=== PATIENT | male | born 1955 | race Asian ===

== ENCOUNTER 2017-09-17 11:58 | Inpatient (IN) | payer SELFPAY ==
[~2017-09-17] VITALS: Ht 172.7 cm; Wt 89.8 kg
[~2017-09-17 11:58] MED LIST: COR6 PO; DAPA1TAB3 PO; ENAL2.5T PO; FURO80TA87 PO; LIP40 PO; POTA20TA82 PO; SITA100T11 PO; SPIR50TA26 PO
[2017-09-17] MEDS ORDERED: IPRATROPIUM BROMIDE (0.02%) 0.5MG/2.5ML NEB HHN STA (14:06)
[2017-09-17] MEDS ORDERED: FUROSEMIDE 40MG/4ML VIAL IV STA (14:06)
[2017-09-17] MEDS ORDERED: ALBUTEROL (0.083%) 2.5MG/3ML NEB HHN STA (14:06)
[2017-09-17 14:56] LABS: CARBON DIOXIDE 29 mEq/L (21-32); CHLORIDE 103 mEq/L (98-107)
[2017-09-17] MEDS ORDERED: ACETAMINOPHEN 325MG TABLET PO PRN (15:15)
[2017-09-17] MEDS ORDERED: CLONIDINE 0.1MG TABLET PO PRN (15:15)
[2017-09-17] MEDS ORDERED: ONDANSETRON HCL 4MG/2ML VIAL IV PRN (15:15)
[2017-09-17] MEDS ORDERED: DEXTROSE 50% WATER 50ML SYRINGE IV PRN (15:15)
[2017-09-17 15:39] LABS: HEMATOCRIT. 39.5 % (42.0-52.0); HEMOGLOBIN. 13.1 g/dL (14.0-18.0); MEAN CORPUSCULAR HEMOGLOBIN 28.4 pg (28.0-32.0); MEAN CORPUSCULAR VOLUME 85.6 fL (80.0-94.0); MEAN PLATELET VOLUME 9.2 fl (7.4-10.4); PLATELET 203 x1000/uL (130-400); RED BLOOD CELL COUNT 4.61 mill/uL (4.7-6.1); RED CELL DISTRIBUTION WIDTH 16.2 % (11.6-14.6)
[2017-09-17 16:07] LABS: AMMONIA < 25 uMol/L (<32)
[2017-09-17 16:09] LABS: BG CARBOXYHEMOGLOBIN 1.1 % (0.5-1.5); BG DEOXYHEMOGLOBIN 3.1 % (0.0-5.0); BG FRACTION INSPIRED OXYGEN 21; BG METHEMOGLOBIN 0.2 % (0.0-1.5); BG OXYGEN SATURATION 96.9 % (92.0-98.5); BG OXYHEMOGLOBIN 95.6 % (94.0-97.0); BG PCO2 35.9 mmHg (35.0-45.0); BG PH 7.406 (7.350-7.450); BG PO2 86.6 mmHg (75.0-100.0); BG SAMPLE SITE RIGHT RADIAL; BG TOTAL HEMOGLOBIN 14.8 g/dL (12.0-18.0); BG VENT MODE ROOM AIR
[2017-09-17 16:12] LABS: D-DIMER 2.34 mg/L FEU (<0.50); INR 1.2; PROTHROMBIN TIME 12.5 sec (9.4-11.6)
[2017-09-17 16:28] LABS: HEPATITIS B SURFACE ANTIGEN NEGATIVE
[2017-09-17 16:42] LABS: ATYPICAL LYMPHOCYTES 2; PLATELET ESTIMATE NORMAL
[2017-09-17 16:57] LABS: HEPATITIS B CORE AB IGM NEGATIVE
[2017-09-17 16:58] LABS: HEPATITIS A AB IGM NEGATIVE (NEGATIVE)
[2017-09-17] MEDS ORDERED: CARVEDILOL 6.25 MG TABLET PO SCH (17:00)
[2017-09-17 20:00] VITALS: BP 119/86
[2017-09-17 20:25] VITALS: BP 119/86
[2017-09-17] MEDS ORDERED: PANTOPRAZOLE SODIUM 40 MG/VIAL IV NR (20:33)
[2017-09-17] MEDS ORDERED: FUROSEMIDE 40MG TABLET PO SCH (20:34)
[2017-09-17] MEDS: INSULIN LISPRO 100 UNITS/ML SUBCUT SCH (21:00)
[2017-09-17] MEDS: BLOOD SUGAR DIAGNOSTIC STRIP TEST SCH (21:21)
[2017-09-17] MEDS: CARVEDILOL 6.25 MG TABLET PO SCH (21:30)
[2017-09-17] MEDS: ATORVASTATIN CALCIUM 40MG TABLET PO SCH (21:30)
[2017-09-17 22:00] VITALS: BP 94/66
[2017-09-17] MEDS ORDERED: SACU1TAB7 PO (23:02)
[2017-09-17] MEDS ORDERED: ASPI-1079 PO (23:02)
[2017-09-17] MEDS ORDERED: CLOP75TA16 PO (23:02)
[2017-09-18] VITALS (12 sets, daily range): BP systolic 90–119; BP diastolic 62–86
[2017-09-18 00:51] LABS: CLARITY URINE CLEAR (CLEAR); COLOR URINE DARK YELLOW (YELLOW); KETONES URINE NEGATIVE (NEGATIVE); LEUKOCYTE ESTERASE URINE NEGATIVE (NEGATIVE); NITRITE URINE NEGATIVE (NEGATIVE); OCCULT BLOOD URINE NEGATIVE (NEGATIVE); PROTEIN URINE NEGATIVE (NEGATIVE); SPECIFIC GRAVITY URINE 1.021 (1.005-1.030)
[2017-09-18] MEDS: INSULIN LISPRO 100 UNITS/ML SUBCUT SCH ×4 (07:20→21:00)
[2017-09-18 07:29] LABS: MEAN CORPUSCULAR HEMOGLOBIN 27.5 pg (28.0-32.0); MEAN CORPUSCULAR VOLUME 85.2 fL (80.0-94.0); MEAN PLATELET VOLUME 8.9 fl (7.4-10.4); PLATELET 190 x1000/uL (130-400); RED BLOOD CELL COUNT 3.98 mill/uL (4.7-6.1)
[2017-09-18] MEDS: BLOOD SUGAR DIAGNOSTIC STRIP TEST SCH ×4 (07:30→21:42)
[2017-09-18 08:43] LABS: AMYLASE 67 IU/L (25-115); CARBON DIOXIDE 27 mEq/L (21-32); CHLORIDE 105 mEq/L (98-107); TROPONIN I < 0.02 ng/mL (0.00-0.04)
[2017-09-18] MEDS ORDERED: DIATR MEGLU/DIATRIZOATE SOLN 30ML PO SCH (08:45)
[2017-09-18] MEDS ORDERED: CLOPIDOGREL 75MG TABLET PO SCH (09:00)
[2017-09-18] MEDS ORDERED: FUROSEMIDE 80MG TABLET PO SCH (09:00)
[2017-09-18] MEDS ORDERED: FUROSEMIDE 40MG/4ML VIAL IVP SCH (09:00)
[2017-09-18] MEDS: CARVEDILOL 6.25 MG TABLET PO SCH ×2 (09:00→21:33)
[2017-09-18] MEDS: PANTOPRAZOLE SODIUM 40 MG/VIAL IV SCH (09:19)
[2017-09-18] MEDS: SPIRONOLACTONE 25MG TABLET PO SCH (09:25)
[2017-09-18] MEDS: FUROSEMIDE 40MG/4ML VIAL IVP SCH (09:25)
[2017-09-18 12:02] LABS: TOTAL IRON BINDING CAPACITY 259 ug/dL (250-450)
[2017-09-18 12:34] LABS: FOLIC ACID (FOLATE) SERUM 7.4 ng/mL (>5.38)
[2017-09-18 15:00] LABS: PLATELET ESTIMATE NORMAL
[2017-09-18] MEDS: ATORVASTATIN CALCIUM 40MG TABLET PO SCH ×2 (21:30→21:31)
[2017-09-19] VITALS (13 sets, daily range): BP systolic 94–114; BP diastolic 65–81
[2017-09-19] MEDS: INSULIN LISPRO 100 UNITS/ML SUBCUT SCH ×4 (06:13→21:00)
[2017-09-19] MEDS: BLOOD SUGAR DIAGNOSTIC STRIP TEST SCH ×4 (06:16→21:03)
[2017-09-19] MEDS: PANTOPRAZOLE SODIUM 40 MG/VIAL IV SCH (08:16)
[2017-09-19] MEDS: FUROSEMIDE 40MG/4ML VIAL IVP SCH ×2 (08:16→21:01)
[2017-09-19] MEDS: CARVEDILOL 6.25 MG TABLET PO SCH ×2 (08:25→21:03)
[2017-09-19] MEDS: SPIRONOLACTONE 25MG TABLET PO SCH (08:25)
[2017-09-19 11:32] LABS: INR 1.2; PARTIAL THROMBOPLASTIN TIME 28.3 sec (23.4-31.0); PROTHROMBIN TIME 12.2 sec (9.4-11.6)
[2017-09-19] MEDS ORDERED: FUROSEMIDE 40MG/4ML VIAL IVP NR (11:45)
[2017-09-19] MEDS ORDERED: METOLAZONE 2.5MG TABLET PO NR (11:45)
[2017-09-19 12:31] LABS: BASOPHILS % 0.7 % (0.0-2.0); EOSINOPHILS % 22.7 % (0.0-5.0); HEMOGLOBIN. 11.8 g/dL (14.0-18.0); LYMPHOCYTES % 7.9 % (20.0-50.0); MEAN CORPUSCULAR HEMOGLOBIN 27.4 pg (28.0-32.0); MEAN CORPUSCULAR VOLUME 86.1 fL (80.0-94.0); MEAN PLATELET VOLUME 9.3 fl (7.4-10.4); NEUTROPHILS % 61.7 % (40.0-76.0); PLATELET 208 x1000/uL (130-400); RED CELL DISTRIBUTION WIDTH 16.6 % (11.6-14.6)
[2017-09-19 12:40] LABS: CARBON DIOXIDE 27 mEq/L (21-32); CHLORIDE 104 mEq/L (98-107)
[2017-09-19] MEDS: ENOXAPARIN 100MG/ML SYR SUBCUT SCH ×2 (12:45→23:40)
[2017-09-19] MEDS: ATORVASTATIN CALCIUM 40MG TABLET PO SCH (21:02)
[2017-09-20] VITALS (12 sets, daily range): BP systolic 93–121; BP diastolic 64–85
[2017-09-20] MEDS: BLOOD SUGAR DIAGNOSTIC STRIP TEST SCH ×4 (06:28→21:10)
[2017-09-20] MEDS: INSULIN LISPRO 100 UNITS/ML SUBCUT SCH ×4 (06:28→21:00)
[2017-09-20 07:19] LABS: BASOPHILS % 0.5 % (0.0-2.0); EOSINOPHILS % 23.4 % (0.0-5.0); HEMATOCRIT. 33.4 % (42.0-52.0); HEMOGLOBIN. 11.2 g/dL (14.0-18.0); MEAN CORPUSCULAR HEMOGLOBIN 28.5 pg (28.0-32.0); MEAN CORPUSCULAR VOLUME 84.8 fL (80.0-94.0); MEAN PLATELET VOLUME 9.2 fl (7.4-10.4); MONOCYTES % 7.9 % (2.0-8.0); NEUTROPHILS % 59.2 % (40.0-76.0); PLATELET 181 x1000/uL (130-400); RED BLOOD CELL COUNT 3.94 mill/uL (4.7-6.1); RED CELL DISTRIBUTION WIDTH 16.2 % (11.6-14.6)
[2017-09-20] MEDS: FUROSEMIDE 40MG/4ML VIAL IVP SCH ×2 (08:33→16:50)
[2017-09-20] MEDS: SPIRONOLACTONE 25MG TABLET PO SCH (08:34)
[2017-09-20] MEDS: CARVEDILOL 6.25 MG TABLET PO SCH ×2 (08:34→21:10)
[2017-09-20] MEDS: FAMOTIDINE 20MG TABLET PO SCH ×2 (08:34→21:10)
[2017-09-20 08:42] LABS: CARBON DIOXIDE 24 mEq/L (21-32); CHLORIDE 103 mEq/L (98-107)
[2017-09-20] MEDS ORDERED: ENOXAPARIN 100MG/ML SYR SUBCUT SCH (09:00)
[2017-09-20 09:07] LABS: ALPHA FETOPROTEIN TUMOR MARKER 2.5 ng/mL (0.0-8.3); IMMUNOGLOBULIN G 1886 mg/dL (700-1600)
[2017-09-20 17:12] LABS: ANTI-NUCLEAR ANTIBODIES DIRECT Negative (Negative)
[2017-09-20] MEDS: ATORVASTATIN CALCIUM 40MG TABLET PO SCH (21:10)
[2017-09-21] VITALS (10 sets, daily range): BP systolic 95–135; BP diastolic 64–77
[2017-09-21] MEDS: BLOOD SUGAR DIAGNOSTIC STRIP TEST SCH ×3 (06:31→16:29)
[2017-09-21] MEDS: INSULIN LISPRO 100 UNITS/ML SUBCUT SCH ×3 (06:32→16:29)
[2017-09-21 06:51] LABS: BASOPHILS % 0.7 % (0.0-2.0); EOSINOPHILS % 24.2 % (0.0-5.0); HEMATOCRIT. 33.8 % (42.0-52.0); HEMOGLOBIN. 11.4 g/dL (14.0-18.0); LYMPHOCYTES % 10.2 % (20.0-50.0); MEAN CORPUSCULAR HEMOGLOBIN 28.4 pg (28.0-32.0); MEAN CORPUSCULAR VOLUME 84.5 fL (80.0-94.0); MEAN PLATELET VOLUME 9.2 fl (7.4-10.4); MONOCYTES % 8.4 % (2.0-8.0); NEUTROPHILS % 56.5 % (40.0-76.0); PLATELET 177 x1000/uL (130-400); RED CELL DISTRIBUTION WIDTH 16.3 % (11.6-14.6)
[2017-09-21 06:54] LABS: INR 1.2; PROTHROMBIN TIME 12.1 sec (9.4-11.6)
[2017-09-21 07:27] LABS: CHLORIDE 102 mEq/L (98-107)
[2017-09-21 07:31] LABS: CARBON DIOXIDE 22 mEq/L (21-32)
[2017-09-21] MEDS: CARVEDILOL 6.25 MG TABLET PO SCH (08:23)
[2017-09-21] MEDS: FAMOTIDINE 20MG TABLET PO SCH (08:23)
[2017-09-21] MEDS: SPIRONOLACTONE 25MG TABLET PO SCH (08:24)
[2017-09-21] MEDS: FUROSEMIDE 40MG/4ML VIAL IVP SCH (08:24)
[2017-09-21] MEDS ORDERED: FURO40TA5 PO (11:51)
[2017-09-21] MEDS ORDERED: APIX5TAB PO (11:51)
[2017-09-21] MEDS ORDERED: SODIUM BICARBONATE 4% (2.4MEQ) 5ML VIAL IV ONE (13:11)
[2017-09-21] MEDS ORDERED: LIDOCAINE HCL 1% 20ML VIAL (Pyxis) INJ ONE (13:11)
[2017-09-21] MEDS ORDERED: FUROSEMIDE 40MG TABLET PO SCH (17:15)
[2017-09-23 08:14] LABS: ACTIN (SMOOTH MUSCLE) ANTIBODY 12 Units (0-19)
== END 2017-09-21 17:55 | disposition home or self-care (01) | DRG 194 ==
LOC: ER 12:55 → 3WST 15:17 → EDBEDREQ 15:21 → ENRESERV 17:06
PROVIDERS: ADMIT Internal Medicine Critical Care Medicine; ATTEND Internal Medicine Critical Care Medicine
PROC: 0W9G3ZZ Drainage of Peritoneal Cavity, Percutaneous Approach (ICD-10-PCS; principal; 2017-09-21)
DX: I11.0 Hypertensive heart disease with heart failure (principal); J96.00 Acute respiratory failure, unspecified whether with hypoxia or hypercapnia; G93.40 Encephalopathy, unspecified; R18.8 Other ascites; E87.5 Hyperkalemia; I08.1 Rheumatic disorders of both mitral and tricuspid valves; E11.9 Type 2 diabetes mellitus without complications; I50.43 Acute on chronic combined systolic (congestive) and diastolic (congestive) heart failure; E78.5 Hyperlipidemia, unspecified; I25.10 Atherosclerotic heart disease of native coronary artery without angina pectoris; I25.5 Ischemic cardiomyopathy; I50.82 Biventricular heart failure; R29.6 Repeated falls; R62.7 Adult failure to thrive; E80.6 Other disorders of bilirubin metabolism; S80.822A Blister (nonthermal), left lower leg, initial encounter; S80.821A Blister (nonthermal), right lower leg, initial encounter; X58.XXXA Exposure to other specified factors, initial encounter; K76.9 Liver disease, unspecified; K29.70 Gastritis, unspecified, without bleeding; I25.2 Old myocardial infarction; Z95.5 Presence of coronary angioplasty implant and graft; Z95.810 Presence of automatic (implantable) cardiac defibrillator; Z88.0 Allergy status to penicillin; Y93.89 Activity, other specified; Y92.89 Other specified places as the place of occurrence of the external cause; Y99.8 Other external cause status; Z79.899 Other long term (current) drug therapy
CPT/HCPCS: 36415; 36600; 49083; 71045; 74176; 76700; 76705; 78582; 80048; 80053; 80076; 81003; 82040; 82105; 82140; 82150; 82248; 82375; 82607; 82728; 82746; 82784; 82805; 82962; 82977; 83540; 83550; 83605; 83615; 83690; 83735; 83880; 84157; 84443; 84484; 85025; 85379; 85384; 85610; 85730; 86038; 86705; 86709; 86803; 87040; 87070; 87086; 87205; 87340; 88108; 89050; 93005; 93306; 93970; 99285; A9558; C9113; J1650; J1815; J1940; J3490; Q9963

== ENCOUNTER 2018-04-01 16:03 | Inpatient (IN) | payer MEDICAID ==
[~2018-04-01] VITALS: Ht 172.7 cm; Wt 83.0 kg
[~2018-04-01 16:03] MED LIST changes: +APIX5TAB PO; +ASPI-1079 PO; +FURO40TA5 PO; -FURO80TA87 PO; -POTA20TA82 PO; +SACU1TAB7 PO; -SPIR50TA26 PO; +SPIR50TA5 PO
[2018-04-01 17:12] LABS: BASOPHILS % 0.8 % (0.0-2.0); EOSINOPHILS % 2.1 % (0.0-5.0); HEMATOCRIT. 41.6 % (42.0-52.0); HEMOGLOBIN. 13.6 g/dL (14.0-18.0); LYMPHOCYTES % 7.2 % (20.0-50.0); MEAN CORPUSCULAR HEMOGLOBIN 26.2 pg (28.0-32.0); MEAN CORPUSCULAR VOLUME 80.3 fL (80.0-94.0); MEAN PLATELET VOLUME 8.5 fl (7.4-10.4); MONOCYTES % 6.3 % (2.0-8.0); NEUTROPHILS % 83.6 % (40.0-76.0); PLATELET 247 x1000/uL (130-400); RED BLOOD CELL COUNT 5.19 mill/uL (4.7-6.1); RED CELL DISTRIBUTION WIDTH 19.3 % (11.6-14.6)
[2018-04-01 17:16] LABS: INR 1.3; PROTHROMBIN TIME 13.4 sec (9.4-11.6)
[2018-04-01 17:17] LABS: CHLORIDE 97 mEq/L (98-107)
[2018-04-01] MEDS ORDERED: FUROSEMIDE 40MG/4ML VIAL IVP ONE (18:45)
[2018-04-01] MEDS ORDERED: IPRATROPIUM/ALBUTEROL 0.5-3(2.5)MG/3ML NEB INH PRN (19:15)
[2018-04-01] MEDS ORDERED: NITROGLYCERIN 0.4MG TABLET SL SL PRN (19:15)
[2018-04-01] MEDS ORDERED: DIPHENHYDRAMINE 50MG/ML VIAL IV PRN (19:15)
[2018-04-01] MEDS ORDERED: ACETAMINOPHEN 325MG TABLET PO PRN (19:15)
[2018-04-01] MEDS ORDERED: GUAIFENESIN 200MG/10ML SUGAR FREE UDC PO PRN (19:15)
[2018-04-01] MEDS ORDERED: CLONIDINE 0.1MG TABLET PO PRN (19:15)
[2018-04-01] MEDS ORDERED: DEXTROSE 50% WATER 50ML SYRINGE IV PRN (19:15)
[2018-04-01] MEDS ORDERED: MAGNESIUM/ALUMINUM HYDROXIDE/SIMETHICONE 30ML UDC PO PRN (19:15)
[2018-04-01] MEDS ORDERED: DOCUSATE SODIUM 100MG CAPSULE PO PRN (19:15)
[2018-04-01] MEDS ORDERED: ONDANSETRON 4MG ODT PO PRN (19:15)
[2018-04-01] MEDS ORDERED: ZOLPIDEM TARTRATE 5MG TABLET PO PRN (21:00)
[2018-04-01] MEDS ORDERED: NA PHOS,M-B/NA PHOS,DI-BA ENEMA 118ML PR PRN (21:00)
[2018-04-01 23:46] VITALS: BP 99/74
[2018-04-02] VITALS: BP_SYST 102; BP_SYST 99; BP_DIAS 74; BP_DIAS 75
[2018-04-02] MEDS: TRAMADOL 50MG TABLET PO PRN ×2 (00:50→09:10)
[2018-04-02 01:13] LABS: CREATINE KINASE 61 IU/L (39-308); CREATINE KINASE MB FRACTION 1.6 ng/mL (0.5-3.6)
[2018-04-02] MEDS ORDERED: RIVA10TA PO (02:27)
[2018-04-02] MEDS ORDERED: OMEG-119 PO (02:30)
[2018-04-02 04:00] VITALS: BP 102/79
[2018-04-02] MEDS: BLOOD SUGAR DIAGNOSTIC STRIP TEST SCH ×4 (07:20→20:51)
[2018-04-02] MEDS: INSULIN LISPRO 100 UNITS/ML SUBCUT SCH ×4 (07:20→20:53)
[2018-04-02 08:00] VITALS: BP 98/74
[2018-04-02] MEDS ORDERED: METOLAZONE 10MG TABLET PO NR (08:00)
[2018-04-02 08:55] LABS: CREATINE KINASE 59 IU/L (39-308)
[2018-04-02 08:56] LABS: CREATINE KINASE MB FRACTION 1.7 ng/mL (0.5-3.6)
[2018-04-02] MEDS: ASPIRIN 325MG EC TABLET PO SCH (08:58)
[2018-04-02] MEDS: FAMOTIDINE 20MG TABLET PO SCH (08:58)
[2018-04-02] MEDS: APIXABAN 2.5 MG TABLET PO SCH ×2 (08:59→17:53)
[2018-04-02] MEDS ORDERED: FUROSEMIDE 40MG/4ML VIAL IVP SCH (09:00)
[2018-04-02] MEDS: SPIRONOLACTONE 25MG TABLET PO SCH ×2 (09:00→21:00)
[2018-04-02 11:38] LABS: HEMOGLOBIN. 12.9 g/dL (14.0-18.0); MEAN CORPUSCULAR HEMOGLOBIN 26.1 pg (28.0-32.0); MEAN CORPUSCULAR VOLUME 80.7 fL (80.0-94.0); MEAN PLATELET VOLUME 8.7 fl (7.4-10.4); PLATELET 207 x1000/uL (130-400); RED BLOOD CELL COUNT 4.96 mill/uL (4.7-6.1); RED CELL DISTRIBUTION WIDTH 19.5 % (11.6-14.6)
[2018-04-02 11:41] LABS: CHLORIDE 97 mEq/L (98-107)
[2018-04-02 12:00] VITALS: BP 107/75
[2018-04-02] MEDS: LORAZEPAM 0.5MG TABLET PO PRN (13:26)
[2018-04-02 13:47] LABS: PLATELET ESTIMATE NORMAL
[2018-04-02 16:00] VITALS: BP 105/71
[2018-04-02 20:00] VITALS: BP 90/65
[2018-04-02] MEDS: FUROSEMIDE 40MG/4ML VIAL IVP SCH (20:46)
[2018-04-02] MEDS ORDERED: ATORVASTATIN CALCIUM 40MG TABLET PO SCH (21:00)
[2018-04-03 04:00] VITALS: BP 121/65
[2018-04-03] MEDS: BLOOD SUGAR DIAGNOSTIC STRIP TEST SCH ×2 (06:43→12:38)
[2018-04-03] MEDS: INSULIN LISPRO 100 UNITS/ML SUBCUT SCH ×2 (07:10→12:38)
[2018-04-03 08:00] VITALS: BP 94/70
[2018-04-03] MEDS ORDERED: METOLAZONE 2.5MG TABLET PO SCH (09:00)
[2018-04-03] MEDS: ASPIRIN 325MG EC TABLET PO SCH (09:00)
[2018-04-03] MEDS: SPIRONOLACTONE 25MG TABLET PO SCH (09:08)
[2018-04-03] MEDS: FUROSEMIDE 40MG/4ML VIAL IVP SCH (09:08)
[2018-04-03] MEDS: APIXABAN 2.5 MG TABLET PO SCH (09:08)
[2018-04-03] MEDS: FAMOTIDINE 20MG TABLET PO SCH (09:08)
[2018-04-03] MEDS: TRAMADOL 50MG TABLET PO PRN (09:09)
[2018-04-03 09:55] LABS: BASOPHILS % 0.6 % (0.0-2.0); EOSINOPHILS % 3.2 % (0.0-5.0); HEMATOCRIT. 40.6 % (42.0-52.0); HEMOGLOBIN. 13.1 g/dL (14.0-18.0); LYMPHOCYTES % 9.5 % (20.0-50.0); MEAN CORPUSCULAR HEMOGLOBIN 26.2 pg (28.0-32.0); MEAN PLATELET VOLUME 8.3 fl (7.4-10.4); NEUTROPHILS % 74.7 % (40.0-76.0); PLATELET 204 x1000/uL (130-400); RED BLOOD CELL COUNT 5.01 mill/uL (4.7-6.1); RED CELL DISTRIBUTION WIDTH 19.4 % (11.6-14.6)
[2018-04-03 10:26] LABS: CHLORIDE 96 mEq/L (98-107)
[2018-04-03 10:41] LABS: LDL CHOLESTEROL 78 mg/dL (5-100)
[2018-04-03 10:42] LABS: CREATINE KINASE 56 IU/L (39-308); CREATINE KINASE MB FRACTION 1.7 ng/mL (0.5-3.6); HDL CHOLESTEROL 23 mg/dL (40-59)
[2018-04-03 12:00] VITALS: BP 97/73
[2018-04-03] MEDS: LORAZEPAM 0.5MG TABLET PO PRN (12:12)
== END 2018-04-03 15:35 | disposition home or self-care (01) | DRG 194 ==
LOC: ER 16:58 → 7WST 18:35 → ENRESERV 21:04
PROVIDERS: ADMIT Internal Medicine; ATTEND Internal Medicine
DX: I13.0 Hypertensive heart and chronic kidney disease with heart failure and stage 1 through stage 4 chronic kidney disease, or unspecified chronic kidney disease (principal); N17.9 Acute kidney failure, unspecified; R18.8 Other ascites; E44.1 Mild protein-calorie malnutrition; E11.22 Type 2 diabetes mellitus with diabetic chronic kidney disease; E87.1 Hypo-osmolality and hyponatremia; I50.23 Acute on chronic systolic (congestive) heart failure; E78.00 Pure hypercholesterolemia, unspecified; I25.10 Atherosclerotic heart disease of native coronary artery without angina pectoris; I25.5 Ischemic cardiomyopathy; N18.9 Chronic kidney disease, unspecified; K76.1 Chronic passive congestion of liver; K74.60 Unspecified cirrhosis of liver; I08.1 Rheumatic disorders of both mitral and tricuspid valves; K57.30 Diverticulosis of large intestine without perforation or abscess without bleeding; I25.2 Old myocardial infarction; Z79.4 Long term (current) use of insulin; Z79.82 Long term (current) use of aspirin; Z95.810 Presence of automatic (implantable) cardiac defibrillator; Z88.0 Allergy status to penicillin; Z79.899 Other long term (current) drug therapy; Z95.5 Presence of coronary angioplasty implant and graft; Z68.27 Body mass index [BMI] 27.0-27.9, adult
CPT/HCPCS: 36415; 71045; 74176; 80053; 80061; 82550; 82553; 82962; 83036; 83690; 83735; 83880; 84484; 85025; 85610; 93005; 93306; 93970; 96374; 99285; J1940

== ENCOUNTER 2018-06-02 16:10 | Inpatient (IN) | payer MEDICAID ==
[~2018-06-02] VITALS: Ht 170.2 cm; Wt 78.1 kg
[2018-06-02] VITALS (21 sets, daily range): BP systolic 91–127; BP diastolic 47–75
[~2018-06-02 16:10] MED LIST changes: -APIX5TAB PO; -ASPI-1079 PO; -COR6 PO; -DAPA1TAB3 PO; -ENAL2.5T PO; +FURO-151 MT; -FURO40TA5 PO; -SACU1TAB7 PO; -SITA100T11 PO; -SPIR50TA5 PO
[2018-06-02 17:08] LABS: BG CARBOXYHEMOGLOBIN 1.3 % (0.5-1.5); BG DEOXYHEMOGLOBIN 1.8 % (0.0-5.0); BG FRACTION INSPIRED OXYGEN 28; BG METHEMOGLOBIN 0.4 % (0.0-1.5); BG OXYGEN SATURATION 98.2 % (92.0-98.5); BG OXYHEMOGLOBIN 96.5 % (94.0-97.0); BG PCO2 23.9 mmHg (35.0-45.0); BG PO2 117.1 mmHg (75.0-100.0); BG SAMPLE SITE RIGHT BRACHIAL; BG VENT MODE NASAL CANNULA
[2018-06-02] MEDS ORDERED: IPRATROPIUM/ALBUTEROL 0.5-3(2.5)MG/3ML NEB INH PRN (17:45)
[2018-06-02] MEDS ORDERED: CLONIDINE 0.1MG TABLET PO PRN (17:45)
[2018-06-02] MEDS ORDERED: ENOXAPARIN 40MG/0.4ML SYR SUBCUT SCH (17:45)
[2018-06-02] MEDS ORDERED: ACETAMINOPHEN 325MG TABLET PO PRN (17:45)
[2018-06-02] MEDS ORDERED: DOCUSATE SODIUM 100MG CAPSULE PO PRN (17:45)
[2018-06-02] MEDS ORDERED: MORPHINE SULFATE 4 MG/ML CPJ (NOT FOR IM USE) IV PRN (17:45)
[2018-06-02] MEDS ORDERED: TRAMADOL 50MG TABLET PO PRN (17:45)
[2018-06-02] MEDS ORDERED: DOBUTAMINE 250MG PREMIX 250 ML IV SCH (17:45)
[2018-06-02] MEDS ORDERED: NA PHOS,M-B/NA PHOS,DI-BA ENEMA 118ML PR PRN (17:45)
[2018-06-02] MEDS ORDERED: NITROGLYCERIN 0.4MG TABLET SL SL PRN (17:45)
[2018-06-02] MEDS ORDERED: GUAIFENESIN 200MG/10ML SUGAR FREE UDC PO PRN (17:45)
[2018-06-02] MEDS ORDERED: MAGNESIUM/ALUMINUM HYDROXIDE/SIMETHICONE 30ML UDC PO PRN (17:45)
[2018-06-02] MEDS ORDERED: SODIUM BICARBONATE 8.4% 1 MEQ/ML 50ML SYR IV ONE (18:00)
[2018-06-02] MEDS: IPRATROPIUM/ALBUTEROL 0.5-3(2.5)MG/3ML NEB HHN SCH ×2 (18:05→19:46)
[2018-06-02] MEDS ORDERED: DEXTROSE 50% WATER 50ML SYRINGE IV PRN (20:45)
[2018-06-02 20:57] LABS: BG CARBOXYHEMOGLOBIN 0.8 % (0.5-1.5); BG DEOXYHEMOGLOBIN 3.3 % (0.0-5.0); BG FRACTION INSPIRED OXYGEN 32; BG HCO3 ACT 14.5 mmol/L (22.0-26.0); BG METHEMOGLOBIN 0.2 % (0.0-1.5); BG OXYGEN SATURATION 96.7 % (92.0-98.5); BG OXYHEMOGLOBIN 95.7 % (94.0-97.0); BG PCO2 31.8 mmHg (35.0-45.0); BG PH 7.277 (7.350-7.450); BG PO2 90.4 mmHg (75.0-100.0); BG SAMPLE SITE LEFT RADIAL; BG TOTAL HEMOGLOBIN 13.4 g/dL (12.0-18.0); BG VENT MODE NASAL CANNULA
[2018-06-02] MEDS: BLOOD SUGAR DIAGNOSTIC STRIP TEST SCH (21:00)
[2018-06-02] MEDS: GUAIFENESIN 600MG ER TABLET PO SCH (21:00)
[2018-06-02] MEDS: ATORVASTATIN CALCIUM 40MG TABLET PO SCH (21:00)
[2018-06-02] MEDS: INSULIN LISPRO 100 UNITS/ML SUBCUT SCH (21:00)
[2018-06-02] MEDS ORDERED: FAMOTIDINE 20MG TABLET PO SCH (21:00)
[2018-06-02 22:15] LABS: CHLORIDE 98 mEq/L (98-107)
[2018-06-02 22:18] LABS: HEMATOCRIT. 40.7 % (42.0-52.0); HEMOGLOBIN. 12.9 g/dL (14.0-18.0); MEAN CORPUSCULAR HEMOGLOBIN 27.1 pg (28.0-32.0); MEAN CORPUSCULAR VOLUME 85.8 fL (80.0-94.0); MEAN PLATELET VOLUME 8.4 fl (7.4-10.4); PLATELET 167 x1000/uL (130-400); RED BLOOD CELL COUNT 4.74 mill/uL (4.7-6.1); RED CELL DISTRIBUTION WIDTH 20.7 % (11.6-14.6)
[2018-06-02 22:22] LABS: TOTAL IRON BINDING CAPACITY 334 ug/dL (250-450)
[2018-06-02 22:23] LABS: LDL CHOLESTEROL 51 mg/dL (5-100)
[2018-06-02 22:24] LABS: HDL CHOLESTEROL 26 mg/dL (40-59)
[2018-06-02 22:38] LABS: FOLIC ACID (FOLATE) SERUM >20 ng/mL ng/mL (>5.38)
[2018-06-02 22:46] LABS: BG BASE EXCESS -9.4 mmol/L (-2.0-2.0); BG BILEVEL POS AIRWAY PRESSURE 15/5; BG CARBOXYHEMOGLOBIN 0.8 % (0.5-1.5); BG DEOXYHEMOGLOBIN 1.1 % (0.0-5.0); BG FRACTION INSPIRED OXYGEN 40; BG HCO3 ACT 14.9 mmol/L (22.0-26.0); BG METHEMOGLOBIN 0.4 % (0.0-1.5); BG OXYGEN SATURATION 98.9 % (92.0-98.5); BG OXYHEMOGLOBIN 97.7 % (94.0-97.0); BG PH 7.343 (7.350-7.450); BG PO2 159.7 mmHg (75.0-100.0); BG SAMPLE SITE RIGHT BRACHIAL; BG TOTAL HEMOGLOBIN 12.9 g/dL (12.0-18.0); BG VENT MODE MASK - BIPAP; BG VENT RATE 20 set
[2018-06-02 22:50] LABS: VITAMIN B12 SERUM 1695 pg/mL (211-911)
[2018-06-03] VITALS (95 sets, daily range): BP systolic 75–143; BP diastolic 45–98
[2018-06-03 00:02] LABS: CREATINE KINASE MB FRACTION 14.9 ng/mL (0.5-3.6)
[2018-06-03] MEDS: DOBUTAMINE 250MG PREMIX 250 ML IV SCH ×4 (02:30→19:14)
[2018-06-03] MEDS: IPRATROPIUM/ALBUTEROL 0.5-3(2.5)MG/3ML NEB HHN SCH ×6 (04:19→23:58)
[2018-06-03 05:00] LABS: HEMATOCRIT. 39.5 % (42.0-52.0); HEMOGLOBIN. 12.6 g/dL (14.0-18.0); MEAN CORPUSCULAR HEMOGLOBIN 26.9 pg (28.0-32.0); MEAN CORPUSCULAR VOLUME 84.7 fL (80.0-94.0); MEAN PLATELET VOLUME 8.7 fl (7.4-10.4); PLATELET 162 x1000/uL (130-400); RED BLOOD CELL COUNT 4.67 mill/uL (4.7-6.1); RED CELL DISTRIBUTION WIDTH 20.2 % (11.6-14.6)
[2018-06-03 05:11] LABS: INR 1.8; PARTIAL THROMBOPLASTIN TIME 39.8 sec (23.4-31.0); PROTHROMBIN TIME 18.2 sec (9.1-11.1)
[2018-06-03 05:52] LABS: CHLORIDE 96 mEq/L (98-107)
[2018-06-03 06:04] LABS: CREATINE KINASE 331 IU/L (39-308)
[2018-06-03 06:07] LABS: CREATINE KINASE MB FRACTION 13.5 ng/mL (0.5-3.6)
[2018-06-03] MEDS: BLOOD SUGAR DIAGNOSTIC STRIP TEST SCH ×4 (07:50→21:15)
[2018-06-03] MEDS: INSULIN LISPRO 100 UNITS/ML SUBCUT SCH ×4 (08:20→21:29)
[2018-06-03 08:40] LABS: BG BASE EXCESS -8.6 mmol/L (-2.0-2.0); BG DEOXYHEMOGLOBIN 2.2 % (0.0-5.0); BG FRACTION INSPIRED OXYGEN 28; BG METHEMOGLOBIN 0.4 % (0.0-1.5); BG OXYGEN SATURATION 97.8 % (92.0-98.5); BG OXYHEMOGLOBIN 96.4 % (94.0-97.0); BG PCO2 30.6 mmHg (35.0-45.0); BG PH 7.337 (7.350-7.450); BG PO2 106.2 mmHg (75.0-100.0); BG SAMPLE SITE RIGHT RADIAL; BG TOTAL HEMOGLOBIN 12.7 g/dL (12.0-18.0); BG VENT MODE NASAL CANNULA
[2018-06-03] MEDS: CITRIC ACID/SODIUM CITRATE SOLN 15ML UDC PO SCH ×3 (09:00→17:00)
[2018-06-03] MEDS ORDERED: FAMOTIDINE 20MG TABLET PO SCH (09:00)
[2018-06-03] MEDS ORDERED: ASPIRIN 325MG EC TABLET PO SCH (09:00)
[2018-06-03] MEDS: GUAIFENESIN 600MG ER TABLET PO SCH ×2 (09:00→21:27)
[2018-06-03] MEDS: FOLIC ACID/VITAMIN B COMP W-C TABLET PO SCH (09:00)
[2018-06-03 09:26] LABS: AMMONIA 60 uMol/L (<32)
[2018-06-03] MEDS ORDERED: LIDOCAINE HCL 1% 20ML VIAL (Pyxis) INJ ONE (10:54)
[2018-06-03] MEDS ORDERED: SODIUM BICARBONATE 4% (2.4MEQ) 5ML VIAL IV ONE (10:55)
[2018-06-03] MEDS: NOREPINEPHRINE 4 MG in DEXT 5% WATER 246 ML IV PRN ×3 (12:58→21:26)
[2018-06-03 13:16] LABS: PLATELET ESTIMATE NORMAL
[2018-06-03] MEDS: ATORVASTATIN CALCIUM 40MG TABLET PO SCH (21:27)
[2018-06-03] MEDS: RIFAXIMIN 550 MG TABLET PO SCH (21:27)
[2018-06-03] MEDS: ENOXAPARIN 30MG/0.3ML SYR SUBCUT SCH (21:28)
[2018-06-04] VITALS (90 sets, daily range): BP systolic 81–123; BP diastolic 36–78
[2018-06-04] MEDS: DOBUTAMINE 250MG PREMIX 250 ML IV SCH ×5 (00:37→23:41)
[2018-06-04] MEDS: NOREPINEPHRINE 4 MG in DEXT 5% WATER 246 ML IV PRN (02:21)
[2018-06-04] MEDS: ZOLPIDEM TARTRATE 5MG TABLET PO PRN ×2 (02:21→20:52)
[2018-06-04 05:42] LABS: HEMATOCRIT. 39.5 % (42.0-52.0); HEMOGLOBIN. 12.5 g/dL (14.0-18.0); MEAN CORPUSCULAR HEMOGLOBIN 26.9 pg (28.0-32.0); MEAN CORPUSCULAR VOLUME 84.9 fL (80.0-94.0); MEAN PLATELET VOLUME 8.8 fl (7.4-10.4); PLATELET 92 x1000/uL (130-400); RED BLOOD CELL COUNT 4.66 mill/uL (4.7-6.1); RED CELL DISTRIBUTION WIDTH 19.7 % (11.6-14.6)
[2018-06-04 05:45] LABS: INR 1.7; PROTHROMBIN TIME 17.4 sec (9.1-11.1)
[2018-06-04 06:11] LABS: AMMONIA 42 uMol/L (<32)
[2018-06-04] MEDS: INSULIN LISPRO 100 UNITS/ML SUBCUT SCH ×4 (07:31→20:52)
[2018-06-04] MEDS: BLOOD SUGAR DIAGNOSTIC STRIP TEST SCH ×4 (07:31→20:53)
[2018-06-04] MEDS: NOREPINEPHRINE 32 MG in DEXT 5% WATER 468 ML IV PRN (08:14)
[2018-06-04] MEDS: CITRIC ACID/SODIUM CITRATE SOLN 15ML UDC PO SCH ×3 (08:14→17:49)
[2018-06-04] MEDS: GUAIFENESIN 600MG ER TABLET PO SCH ×2 (08:14→20:52)
[2018-06-04] MEDS: FOLIC ACID/VITAMIN B COMP W-C TABLET PO SCH (08:14)
[2018-06-04] MEDS: PANTOPRAZOLE SODIUM 40 MG/VIAL IV SCH (08:14)
[2018-06-04] MEDS: RIFAXIMIN 550 MG TABLET PO SCH ×2 (08:14→20:52)
[2018-06-04] MEDS: LACTULOSE 20G/30ML UDC PO SCH ×2 (08:15→17:49)
[2018-06-04] MEDS: IPRATROPIUM/ALBUTEROL 0.5-3(2.5)MG/3ML NEB HHN SCH ×4 (09:01→20:32)
[2018-06-04 10:07] LABS: NUCLEATED RED BLOOD CELLS 1 /100 WBC; PLATELET ESTIMATE SLIGHTLY DECREASED
[2018-06-04] MEDS: ATORVASTATIN CALCIUM 40MG TABLET PO SCH (20:52)
[2018-06-04] MEDS: ENOXAPARIN 30MG/0.3ML SYR SUBCUT SCH (20:52)
[2018-06-04] MEDS: LORAZEPAM 0.5MG TABLET PO PRN (23:41)
[2018-06-05] VITALS (94 sets, daily range): BP systolic 69–133; BP diastolic 26–81
[2018-06-05] MEDS: IPRATROPIUM/ALBUTEROL 0.5-3(2.5)MG/3ML NEB HHN SCH ×6 (00:36→20:01)
[2018-06-05] MEDS: ONDANSETRON HCL 4MG/2ML INJ IV PRN (00:54)
[2018-06-05] MEDS: NOREPINEPHRINE 32 MG in DEXT 5% WATER 468 ML IV PRN (04:42)
[2018-06-05] MEDS: DOBUTAMINE 250MG PREMIX 250 ML IV SCH ×3 (04:42→21:19)
[2018-06-05 06:50] LABS: HEMATOCRIT. 37.1 % (42.0-52.0); MEAN CORPUSCULAR HEMOGLOBIN 27.6 pg (28.0-32.0); MEAN CORPUSCULAR VOLUME 85.1 fL (80.0-94.0); MEAN PLATELET VOLUME 9.3 fl (7.4-10.4); PLATELET 61 x1000/uL (130-400); RED BLOOD CELL COUNT 4.35 mill/uL (4.7-6.1); RED CELL DISTRIBUTION WIDTH 20.6 % (11.6-14.6)
[2018-06-05 06:52] LABS: INR 1.5; PROTHROMBIN TIME 14.9 sec (9.1-11.1)
[2018-06-05] MEDS: BLOOD SUGAR DIAGNOSTIC STRIP TEST SCH ×4 (08:04→20:31)
[2018-06-05] MEDS ORDERED: LIDOCAINE HCL 1% 20ML VIAL (Pyxis) INJ ONE (08:06)
[2018-06-05] MEDS ORDERED: SODIUM BICARBONATE 4% (2.4MEQ) 5ML VIAL IV ONE (08:06)
[2018-06-05] MEDS ORDERED: LORAZEPAM 2MG/ML CPJ IV PRN (08:20)
[2018-06-05] MEDS: PANTOPRAZOLE SODIUM 40 MG/VIAL IV SCH (08:25)
[2018-06-05] MEDS: INSULIN LISPRO 100 UNITS/ML SUBCUT SCH ×4 (08:26→20:31)
[2018-06-05] MEDS: GUAIFENESIN 600MG ER TABLET PO SCH ×3 (08:26→20:31)
[2018-06-05] MEDS: LACTULOSE 20G/30ML UDC PO SCH ×3 (08:26→17:00)
[2018-06-05] MEDS: RIFAXIMIN 550 MG TABLET PO SCH ×3 (08:26→20:31)
[2018-06-05] MEDS: FOLIC ACID/VITAMIN B COMP W-C TABLET PO SCH ×2 (08:26→09:00)
[2018-06-05] MEDS: CITRIC ACID/SODIUM CITRATE SOLN 15ML UDC PO SCH ×4 (08:26→17:00)
[2018-06-05 10:02] LABS: CHLORIDE 95 mEq/L (98-107)
[2018-06-05 10:08] LABS: PHOSPHORUS 4.2 mg/dL (2.5-4.9)
[2018-06-05 11:12] LABS: BG CARBOXYHEMOGLOBIN 0.1 % (0.5-1.5); BG DEOXYHEMOGLOBIN 1.1 % (0.0-5.0); BG FRACTION INSPIRED OXYGEN 21; BG HCO3 ACT 14.9 mmol/L (22.0-26.0); BG METHEMOGLOBIN 0.3 % (0.0-1.5); BG OXYGEN SATURATION 98.9 % (92.0-98.5); BG OXYHEMOGLOBIN 98.5 % (94.0-97.0); BG PCO2 25.7 mmHg (35.0-45.0); BG PH 7.381 (7.350-7.450); BG PO2 189.3 mmHg (75.0-100.0); BG SAMPLE SITE LEFT RADIAL; BG TOTAL HEMOGLOBIN 8.7 g/dL (12.0-18.0); BG VENT MODE ROOM AIR
[2018-06-05 14:39] LABS: NUCLEATED RED BLOOD CELLS 3 /100 WBC
[2018-06-05 14:40] LABS: PLATELET ESTIMATE DECREASED
[2018-06-05 16:03] LABS: AMMONIA 56 uMol/L (<32)
[2018-06-05 19:34] LABS: CLARITY URINE TURBID (CLEAR); COLOR URINE RED (YELLOW); KETONES URINE 1+ (NEGATIVE); LEUKOCYTE ESTERASE URINE 3+ (NEGATIVE); NITRITE URINE POSITIVE (NEGATIVE); OCCULT BLOOD URINE 3+ (NEGATIVE); PROTEIN URINE 3+ (NEGATIVE); SPECIFIC GRAVITY URINE 1.013 (1.005-1.030)
[2018-06-05] MEDS: ATORVASTATIN CALCIUM 40MG TABLET PO SCH (20:31)
[2018-06-05] MEDS ORDERED: LACTULOSE 300 ML in WATER FOR IRRIGATION,STERILE 700 ML PR NR (21:00)
[2018-06-06] VITALS (107 sets, daily range): BP systolic 53–134; BP diastolic 22–91
[2018-06-06] MEDS: IPRATROPIUM/ALBUTEROL 0.5-3(2.5)MG/3ML NEB HHN SCH ×6 (00:11→20:13)
[2018-06-06] MEDS: DOBUTAMINE 250MG PREMIX 250 ML IV SCH ×4 (03:01→21:13)
[2018-06-06 05:56] LABS: AMMONIA 18 uMol/L (<32)
[2018-06-06 05:59] LABS: HEMOGLOBIN. 12.3 g/dL (14.0-18.0); INR 1.4; MEAN CORPUSCULAR VOLUME 83.3 fL (80.0-94.0); MEAN PLATELET VOLUME 9.1 fl (7.4-10.4); PLATELET 55 x1000/uL (130-400); PROTHROMBIN TIME 14.3 sec (9.1-11.1); RED BLOOD CELL COUNT 4.57 mill/uL (4.7-6.1); RED CELL DISTRIBUTION WIDTH 20.4 % (11.6-14.6)
[2018-06-06 06:03] LABS: CHLORIDE 92 mEq/L (98-107)
[2018-06-06 06:11] LABS: PHOSPHORUS 4.3 mg/dL (2.5-4.9)
[2018-06-06] MEDS: NOREPINEPHRINE 32 MG in DEXT 5% WATER 468 ML IV PRN (06:21)
[2018-06-06] MEDS: BLOOD SUGAR DIAGNOSTIC STRIP TEST SCH ×4 (07:50→21:38)
[2018-06-06] MEDS: INSULIN LISPRO 100 UNITS/ML SUBCUT SCH ×4 (08:20→21:00)
[2018-06-06] MEDS: PANTOPRAZOLE SODIUM 40 MG/VIAL IV SCH (08:42)
[2018-06-06] MEDS: GUAIFENESIN 600MG ER TABLET PO SCH ×2 (08:42→21:18)
[2018-06-06] MEDS: FOLIC ACID/VITAMIN B COMP W-C TABLET PO SCH (08:42)
[2018-06-06] MEDS: CITRIC ACID/SODIUM CITRATE SOLN 15ML UDC PO SCH ×3 (08:42→17:32)
[2018-06-06] MEDS: RIFAXIMIN 550 MG TABLET PO SCH ×2 (08:42→21:13)
[2018-06-06] MEDS: LACTULOSE 20G/30ML UDC PO SCH (08:42)
[2018-06-06 10:45] LABS: NUCLEATED RED BLOOD CELLS 4 /100 WBC
[2018-06-06] MEDS: LORAZEPAM 0.5MG TABLET PO PRN (10:45)
[2018-06-06 10:46] LABS: PLATELET ESTIMATE MARKEDLY DECREASED
[2018-06-06] MEDS ORDERED: LEVOFLOXACIN 250MG TABLET PO SCH (11:00)
[2018-06-06] MEDS ORDERED: ALBUMIN HUMAN 12.5GM/50ML (25%) IV NR (12:00)
[2018-06-06] MEDS ORDERED: HEPARIN SODIUM 1,000 UNIT/1ML VIAL IV NR (14:15)
[2018-06-06] MEDS: ATORVASTATIN CALCIUM 40MG TABLET PO SCH (21:13)
[2018-06-06] MEDS: ZOLPIDEM TARTRATE 5MG TABLET PO PRN (22:33)
[2018-06-06] MEDS: DIPHENHYDRAMINE 50MG/ML VIAL IV PRN (22:33)
[2018-06-07] VITALS (61 sets, daily range): BP systolic 55–158; BP diastolic 35–100
[2018-06-07] MEDS: IPRATROPIUM/ALBUTEROL 0.5-3(2.5)MG/3ML NEB HHN SCH ×6 (00:12→20:09)
[2018-06-07] MEDS ORDERED: DOBUTAMINE HCL IN DEXTROSE 5 % 250 ML IV PRN (02:30)
[2018-06-07] MEDS: DOBUTAMINE HCL 500 MG in DEXTROSE 5% WATER 250 ML IV SCH (03:19)
[2018-06-07] MEDS: NOREPINEPHRINE 32 MG in DEXT 5% WATER 468 ML IV PRN ×2 (03:20→20:52)
[2018-06-07] MEDS ORDERED: PHENYLEPHRINE 40 MG in DEXT 5% WATER 246 ML IV PRN (04:15)
[2018-06-07 05:42] LABS: BASOPHILS % 0.9 % (0.0-2.0); EOSINOPHILS % 0.1 % (0.0-5.0); HEMOGLOBIN. 11.3 g/dL (14.0-18.0); LYMPHOCYTES % 3.7 % (20.0-50.0); MEAN CORPUSCULAR VOLUME 83.6 fL (80.0-94.0); MEAN PLATELET VOLUME 10.2 fl (7.4-10.4); MONOCYTES % 7.2 % (2.0-8.0); NEUTROPHILS % 88.1 % (40.0-76.0); RED BLOOD CELL COUNT 4.19 mill/uL (4.7-6.1); RED CELL DISTRIBUTION WIDTH 20.3 % (11.6-14.6)
[2018-06-07 05:52] LABS: AMMONIA 30 uMol/L (<32)
[2018-06-07 06:03] LABS: CHLORIDE 93 mEq/L (98-107)
[2018-06-07 06:12] LABS: PHOSPHORUS 4.8 mg/dL (2.5-4.9)
[2018-06-07] MEDS: BLOOD SUGAR DIAGNOSTIC STRIP TEST SCH ×4 (07:50→21:00)
[2018-06-07 07:57] LABS: PLATELET 41 x1000/uL (130-400)
[2018-06-07] MEDS: INSULIN LISPRO 100 UNITS/ML SUBCUT SCH ×4 (08:20→21:00)
[2018-06-07] MEDS: FOLIC ACID/VITAMIN B COMP W-C TABLET PO SCH (09:25)
[2018-06-07] MEDS: PANTOPRAZOLE SODIUM 40 MG/VIAL IV SCH (09:25)
[2018-06-07] MEDS: GUAIFENESIN 600MG ER TABLET PO SCH ×2 (09:25→20:55)
[2018-06-07] MEDS: RIFAXIMIN 550 MG TABLET PO SCH ×2 (09:25→20:55)
[2018-06-07] MEDS: CITRIC ACID/SODIUM CITRATE SOLN 15ML UDC PO SCH ×3 (09:25→16:41)
[2018-06-07 10:10] LABS: BG BASE EXCESS -6.9 mmol/L (-2.0-2.0); BG CARBOXYHEMOGLOBIN 0.7 % (0.5-1.5); BG DEOXYHEMOGLOBIN 2.6 % (0.0-5.0); BG FRACTION INSPIRED OXYGEN 21; BG HCO3 ACT 14.5 mmol/L (22.0-26.0); BG METHEMOGLOBIN 0.4 % (0.0-1.5); BG OXYGEN SATURATION 97.4 % (92.0-98.5); BG OXYHEMOGLOBIN 96.3 % (94.0-97.0); BG PH 7.479 (7.350-7.450); BG PO2 95.9 mmHg (75.0-100.0); BG SAMPLE SITE LEFT RADIAL; BG VENT MODE ROOM AIR
[2018-06-07] MEDS: MIDODRINE HCL 5MG TABLET PO SCH ×2 (11:00→20:59)
[2018-06-07] MEDS: SIMETHICONE 40 MG/0.6 ML 30ML PO SCH ×2 (13:50→21:00)
[2018-06-07] MEDS: ATORVASTATIN CALCIUM 40MG TABLET PO SCH (20:55)
[2018-06-08] VITALS (87 sets, daily range): BP systolic 42–166; BP diastolic 16–136
[2018-06-08] MEDS: IPRATROPIUM/ALBUTEROL 0.5-3(2.5)MG/3ML NEB HHN SCH ×5 (00:18→20:00)
[2018-06-08] MEDS: MIDODRINE HCL 5MG TABLET PO SCH ×3 (05:42→21:38)
[2018-06-08 05:46] LABS: HEMATOCRIT. 34.7 % (42.0-52.0); MEAN CORPUSCULAR HEMOGLOBIN 26.7 pg (28.0-32.0); MEAN CORPUSCULAR VOLUME 84.3 fL (80.0-94.0); RED BLOOD CELL COUNT 4.12 mill/uL (4.7-6.1); RED CELL DISTRIBUTION WIDTH 20.6 % (11.6-14.6)
[2018-06-08 06:09] LABS: PHOSPHORUS 5.6 mg/dL (2.5-4.9)
[2018-06-08 06:48] LABS: PLATELET 36 x1000/uL (130-400)
[2018-06-08] MEDS: DOBUTAMINE HCL 500 MG in DEXTROSE 5% WATER 250 ML IV SCH (07:11)
[2018-06-08] MEDS: BLOOD SUGAR DIAGNOSTIC STRIP TEST SCH ×3 (07:50→21:39)
[2018-06-08 08:20] LABS: NUCLEATED RED BLOOD CELLS 5 /100 WBC
[2018-06-08] MEDS: INSULIN LISPRO 100 UNITS/ML SUBCUT SCH ×3 (08:20→21:00)
[2018-06-08 08:21] LABS: PLATELET ESTIMATE MARKEDL
[2018-06-08] MEDS ORDERED: PHENYLEPHRINE 40 MG in SODIUM CHLORIDE 0.9% 246 ML IV PRN (09:00)
[2018-06-08] MEDS: CITRIC ACID/SODIUM CITRATE SOLN 15ML UDC PO SCH ×2 (09:00→13:00)
[2018-06-08] MEDS: RIFAXIMIN 550 MG TABLET PO SCH ×2 (09:52→21:37)
[2018-06-08] MEDS: PANTOPRAZOLE SODIUM 40 MG/VIAL IV SCH (09:53)
[2018-06-08] MEDS: GUAIFENESIN 600MG ER TABLET PO SCH ×2 (09:53→21:38)
[2018-06-08] MEDS: FOLIC ACID/VITAMIN B COMP W-C TABLET PO SCH (09:53)
[2018-06-08] MEDS: ONDANSETRON HCL 4MG/2ML INJ IV PRN ×3 (09:54→18:46)
[2018-06-08] MEDS: DIPHENHYDRAMINE 50MG/ML VIAL IV PRN (09:54)
[2018-06-08] MEDS: MORPHINE SULFATE 4 MG/ML CPJ (NOT FOR IM USE) IV PRN (14:18)
[2018-06-08] MEDS ORDERED: DOBUTAMINE HCL 500 MG in SODIUM CHLORIDE 0.9% 210 ML IV SCH (16:00)
[2018-06-08] MEDS: SIMETHICONE 40 MG/0.6 ML 30ML PO SCH ×2 (18:50→21:38)
[2018-06-08] MEDS: DOBUTAMINE HCL 500 MG in SODIUM CHLORIDE 0.9% 210 ML IV SCH ×2 (21:38→23:39)
[2018-06-08] MEDS: ATORVASTATIN CALCIUM 40MG TABLET PO SCH (21:39)
[2018-06-08] MEDS: NOREPINEPHRINE 32 MG in SODIUM CHLORIDE 0.9% 468 ML IV PRN (23:40)
[2018-06-09] VITALS (100 sets, daily range): BP systolic 65–126; BP diastolic 38–69
[2018-06-09] MEDS: IPRATROPIUM/ALBUTEROL 0.5-3(2.5)MG/3ML NEB HHN SCH ×6 (00:15→20:49)
[2018-06-09 05:52] LABS: MEAN CORPUSCULAR HEMOGLOBIN 27.1 pg (28.0-32.0); MEAN CORPUSCULAR VOLUME 83.7 fL (80.0-94.0); MEAN PLATELET VOLUME 9.3 fl (7.4-10.4); RED BLOOD CELL COUNT 3.71 mill/uL (4.7-6.1); RED CELL DISTRIBUTION WIDTH 20.6 % (11.6-14.6)
[2018-06-09 05:59] LABS: CHLORIDE 94 mEq/L (98-107)
[2018-06-09] MEDS: MIDODRINE HCL 5MG TABLET PO SCH ×3 (05:59→23:19)
[2018-06-09 06:09] LABS: PHOSPHORUS 5.1 mg/dL (2.5-4.9)
[2018-06-09 06:34] LABS: PLATELET 28 x1000/uL (130-400)
[2018-06-09] MEDS ORDERED: SODIUM POLYSTYRENE SULFONATE 15 G/60 ML BOT PO NR (08:00)
[2018-06-09] MEDS: INSULIN LISPRO 100 UNITS/ML SUBCUT SCH ×4 (08:20→20:52)
[2018-06-09] MEDS: SIMETHICONE 40 MG/0.6 ML 30ML PO SCH ×4 (08:50→21:40)
[2018-06-09] MEDS: PANTOPRAZOLE SODIUM 40 MG/VIAL IV SCH (09:00)
[2018-06-09] MEDS: RIFAXIMIN 550 MG TABLET PO SCH ×2 (09:54→21:40)
[2018-06-09] MEDS: FOLIC ACID/VITAMIN B COMP W-C TABLET PO SCH (09:54)
[2018-06-09] MEDS: GUAIFENESIN 600MG ER TABLET PO SCH ×2 (09:54→21:39)
[2018-06-09 09:57] LABS: NUCLEATED RED BLOOD CELLS 1 /100 WBC; PLATELET ESTIMATE MARKEDLY DECREASED
[2018-06-09] MEDS: DOBUTAMINE HCL 500 MG in SODIUM CHLORIDE 0.9% 210 ML IV SCH ×2 (10:02→21:39)
[2018-06-09] MEDS: CEFTRIAXONE 1 G PREMIX 50 ML IV SCH (17:22)
[2018-06-09] MEDS: METRONIDAZOLE 500 MG PREMIX 100 ML IV SCH (17:22)
[2018-06-09] MEDS: NOREPINEPHRINE 32 MG in SODIUM CHLORIDE 0.9% 468 ML IV PRN (19:39)
[2018-06-09] MEDS: BLOOD SUGAR DIAGNOSTIC STRIP TEST SCH (20:51)
[2018-06-09] MEDS: ATORVASTATIN CALCIUM 40MG TABLET PO SCH (21:39)
[2018-06-09] MEDS: GUAIFENESIN/CODEINE 100-10MG/5ML UDC PO SCH (23:19)
[2018-06-09] MEDS: MORPHINE SULFATE 4 MG/ML CPJ (NOT FOR IM USE) IV PRN (23:23)
[2018-06-10] VITALS (36 sets, daily range): BP systolic 69–109; BP diastolic 33–77
[2018-06-10] MEDS: IPRATROPIUM/ALBUTEROL 0.5-3(2.5)MG/3ML NEB HHN SCH ×5 (00:32→16:05)
[2018-06-10] MEDS: DIPHENHYDRAMINE 50MG/ML VIAL IV PRN (01:18)
[2018-06-10] MEDS: GUAIFENESIN/CODEINE 100-10MG/5ML UDC PO SCH ×3 (04:47→16:00)
[2018-06-10] MEDS: METRONIDAZOLE 500 MG PREMIX 100 ML IV SCH ×2 (06:10→18:45)
[2018-06-10 06:41] LABS: CHLORIDE 95 mEq/L (98-107); HEMATOCRIT. 32.7 % (42.0-52.0); HEMOGLOBIN. 10.4 g/dL (14.0-18.0); MEAN CORPUSCULAR HEMOGLOBIN 26.5 pg (28.0-32.0); MEAN CORPUSCULAR VOLUME 83.1 fL (80.0-94.0); MEAN PLATELET VOLUME 8.8 fl (7.4-10.4); RED BLOOD CELL COUNT 3.93 mill/uL (4.7-6.1); RED CELL DISTRIBUTION WIDTH 20.5 % (11.6-14.6)
[2018-06-10 06:47] LABS: PLATELET 23 x1000/uL (130-400)
[2018-06-10 06:51] LABS: PHOSPHORUS 5.6 mg/dL (2.5-4.9)
[2018-06-10] MEDS: MIDODRINE HCL 5MG TABLET PO SCH ×2 (06:52→14:00)
[2018-06-10] MEDS: DOBUTAMINE HCL 500 MG in SODIUM CHLORIDE 0.9% 210 ML IV SCH (07:16)
[2018-06-10] MEDS: BLOOD SUGAR DIAGNOSTIC STRIP TEST SCH ×3 (07:50→17:50)
[2018-06-10] MEDS: INSULIN LISPRO 100 UNITS/ML SUBCUT SCH ×3 (08:20→18:20)
[2018-06-10] MEDS: PANTOPRAZOLE SODIUM 40 MG/VIAL IV SCH (08:25)
[2018-06-10] MEDS: FOLIC ACID/VITAMIN B COMP W-C TABLET PO SCH (08:25)
[2018-06-10] MEDS: RIFAXIMIN 550 MG TABLET PO SCH (08:25)
[2018-06-10] MEDS: SIMETHICONE 40 MG/0.6 ML 30ML PO SCH ×3 (08:50→18:50)
[2018-06-10 09:12] LABS: NUCLEATED RED BLOOD CELLS 2 /100 WBC; PLATELET ESTIMATE MARKEDLY DECREASED
[2018-06-10 10:04] LABS: BG BASE EXCESS -5.5 mmol/L (-2.0-2.0); BG CARBOXYHEMOGLOBIN 0.8 % (0.5-1.5); BG DEOXYHEMOGLOBIN 2.5 % (0.0-5.0); BG FRACTION INSPIRED OXYGEN 21; BG HCO3 ACT 16.8 mmol/L (22.0-26.0); BG METHEMOGLOBIN 0.1 % (0.0-1.5); BG OXYGEN SATURATION 97.5 % (92.0-98.5); BG OXYHEMOGLOBIN 96.6 % (94.0-97.0); BG PCO2 24.2 mmHg (35.0-45.0); BG PH 7.459 (7.350-7.450); BG PO2 95.7 mmHg (75.0-100.0); BG SAMPLE SITE RIGHT BRACHIAL; BG TOTAL HEMOGLOBIN 11.4 g/dL (12.0-18.0); BG VENT MODE ROOM AIR
[2018-06-10] MEDS: MORPHINE SULFATE 4 MG/ML CPJ (NOT FOR IM USE) IV PRN (11:30)
[2018-06-10] MEDS ORDERED: SODIUM BICARBONATE 7.5% 0.9 MEQ/ML 50ML SYR IV ONE (14:24)
[2018-06-10] MEDS ORDERED: CALCIUM CHLORIDE 1GM/10ML SYR IV ONE (14:24)
[2018-06-10] MEDS ORDERED: EPINEPHRINE 0.1MG/ML (1:10,000) 10ML SYR ONE ×2 (14:24→14:25)
[2018-06-10] MEDS ORDERED: PHENYLEPHRINE 40 MG in DEXT 5% WATER 246 ML IV PRN (15:00)
[2018-06-10 16:44] LABS: HEMATOCRIT 34.6 % (42.0-52.0); MEAN CORPUSCULAR HEMOGLOBIN 26.4 pg (28.0-32.0); MEAN CORPUSCULAR VOLUME 83.4 fL (80.0-94.0); RED BLOOD CELL COUNT 4.15 mill/uL (4.7-6.1); RED CELL DISTRIBUTION WIDTH 20.6 % (11.6-14.6)
[2018-06-10 16:49] LABS: PLATELET 35 x1000/uL (130-400)
[2018-06-10 16:55] LABS: AMMONIA 31 uMol/L (<32)
[2018-06-10] MEDS: CEFTRIAXONE 1 G PREMIX 50 ML IV SCH (18:00)
== END 2018-06-10 21:00 | disposition expired | DRG 720 ==
LOC: CVICU 16:10
PROVIDERS: ADMIT Internal Medicine; ATTEND Internal Medicine
PROC: 0W9G3ZZ Drainage of Peritoneal Cavity, Percutaneous Approach (ICD-10-PCS; principal; 2018-06-03)
PROC: 02HV33Z Insertion of Infusion Device into Superior Vena Cava, Percutaneous Approach (ICD-10-PCS; 2018-06-03)
PROC: B548ZZA Ultrasonography of Superior Vena Cava, Guidance (ICD-10-PCS; 2018-06-03)
PROC: 5A09357 Assistance with Respiratory Ventilation, Less than 24 Consecutive Hours, Continuous Positive Airway Pressure (ICD-10-PCS; 2018-06-03)
PROC: 5A1D70Z Performance of Urinary Filtration, Intermittent, Less than 6 Hours Per Day (ICD-10-PCS; 2018-06-03)
PROC: 0W9G3ZZ Drainage of Peritoneal Cavity, Percutaneous Approach (ICD-10-PCS; 2018-06-05)
PROC: 5A1D70Z Performance of Urinary Filtration, Intermittent, Less than 6 Hours Per Day (ICD-10-PCS; 2018-06-05)
PROC: 5A1D70Z Performance of Urinary Filtration, Intermittent, Less than 6 Hours Per Day (ICD-10-PCS; 2018-06-06)
PROC: 5A1D70Z Performance of Urinary Filtration, Intermittent, Less than 6 Hours Per Day (ICD-10-PCS; 2018-06-07)
PROC: 5A1D70Z Performance of Urinary Filtration, Intermittent, Less than 6 Hours Per Day (ICD-10-PCS; 2018-06-09)
DX: A41.9 Sepsis, unspecified organism (principal); I21.4 Non-ST elevation (NSTEMI) myocardial infarction; J96.01 Acute respiratory failure with hypoxia; R57.0 Cardiogenic shock; D61.818 Other pancytopenia; E87.4 Mixed disorder of acid-base balance; N17.9 Acute kidney failure, unspecified; N18.6 End stage renal disease; D68.9 Coagulation defect, unspecified; E11.22 Type 2 diabetes mellitus with diabetic chronic kidney disease; E46 Unspecified protein-calorie malnutrition; G92 Toxic encephalopathy; I13.2 Hypertensive heart and chronic kidney disease with heart failure and with stage 5 chronic kidney disease, or end stage renal disease; I50.43 Acute on chronic combined systolic (congestive) and diastolic (congestive) heart failure; R18.8 Other ascites; I48.91 Unspecified atrial fibrillation; K74.60 Unspecified cirrhosis of liver; K72.10 Chronic hepatic failure without coma; Z99.2 Dependence on renal dialysis; E78.00 Pure hypercholesterolemia, unspecified; E78.5 Hyperlipidemia, unspecified; E87.5 Hyperkalemia; E87.1 Hypo-osmolality and hyponatremia; I08.1 Rheumatic disorders of both mitral and tricuspid valves; I25.10 Atherosclerotic heart disease of native coronary artery without angina pectoris; I25.5 Ischemic cardiomyopathy; I27.20 Pulmonary hypertension, unspecified; I50.82 Biventricular heart failure; J98.11 Atelectasis; K80.20 Calculus of gallbladder without cholecystitis without obstruction; N39.0 Urinary tract infection, site not specified; S80.821A Blister (nonthermal), right lower leg, initial encounter; S80.822A Blister (nonthermal), left lower leg, initial encounter; S81.012A Laceration without foreign body, left knee, initial encounter; W19.XXXA Unspecified fall, initial encounter; Y93.89 Activity, other specified; Y99.8 Other external cause status; Y92.009 Unspecified place in unspecified non-institutional (private) residence as the place of occurrence of the external cause; Z78.1 Physical restraint status; Z79.82 Long term (current) use of aspirin; Z88.0 Allergy status to penicillin; Z95.5 Presence of coronary angioplasty implant and graft; Z87.19 Personal history of other diseases of the digestive system; Z79.84 Long term (current) use of oral hypoglycemic drugs; Z68.27 Body mass index [BMI] 27.0-27.9, adult
CPT/HCPCS: 36415; 36556; 36600; 49083; 71045; 74018; 76700; 76705; 76937; 80048; 80053; 80061; 80076; 81003; 82140; 82248; 82375; 82550; 82553; 82607; 82728; 82746; 82805; 82962; 83036; 83540; 83550; 83605; 83735; 84100; 84443; 84484; 85025; 85027; 85610; 85730; 87040; 87070; 87086; 87205; 88108; 88312; 89050; 92610; 92950; 93005; 93306; 93970; 94640; 94660; C1752; C9113; J0696; J1200; J1250; J1644; J1650; J1815; J2060; J2270; J2370; J2405; J3490; J7030; J7040; J7050; J7060; J7620; P9047; A4315